=== PATIENT | female | born 1950 | race Caucasian/White ===

== ENCOUNTER → 2018-03-28 10:37 | Outpatient (CLI) | payer MEDICARE, SELFPAY ==
--- NOTE | 2018-03-28 | DI.MG.S_ITS ---
BILATERAL DIGITAL SCREENING MAMMOGRAM 3D/2D WITH CAD: 03/28/2018 CLINICAL: Routine screening. Comparison is made to exams dated: 01/17/2017 mammogram, 01/14/2016 mammogram, and 01/12/2015 mammogram - [facility]. There are scattered fibroglandular elements in both breasts. Current study was also evaluated with a Computer Aided Detection (CAD) system. No significant masses, calcifications, or other findings are seen in either breast. There has been no significant interval change. IMPRESSION: NEGATIVE There is no mammographic evidence of malignancy. A 1 year screening mammogram is recommended.(03/29/2019) NOTE: For mammograms, a report in lay terms will be sent to the patient. Approximately 15% of breast malignancies will not be visualized mammographically. In the management of a palpable breast mass, a negative mammogram must not discourage biopsy of a clinically suspicious lesion. Electronically Signed By: Danika rico/sam:03/28/2018 13:15:30 letter sent: Normal Exam ACR BI-RADS Category 1: Negative 3341F
== END ==
PROVIDERS: Family Provider Family Medicine; PCP Family Medicine; Visit Provider Family Medicine
DX: Z12.31 Encounter for screening mammogram for malignant neoplasm of breast (principal)
CPT/HCPCS: 77063; 77067

== ENCOUNTER → 2018-06-29 16:29 | Outpatient (CLI) | payer MEDICARE, SELFPAY ==
--- NOTE | 2018-06-29 16:32 | DI.RAD.S_ITS ---
PROCEDURE: XR WRIST LT MIN 3V INDICATIONS: LEFT WRIST PAIN TECHNIQUE: 4 views of the wrist were acquired. COMPARISON: None. FINDINGS: Bones: No fractures or dislocations. No suspicious bony lesions. Mild osteoarthritic changes along radial aspect of left wrist are seen. Scaphoid view: Scaphoid is grossly intact. Soft tissues: No suspicious soft tissue calcifications. 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 No fracture or dislocation. Dictated by: Basil Powell M.D. on 06/29/2018 at 16:56 Approved by: Basil Powell M.D. on 06/29/2018 at 16:57
== END ==
PROVIDERS: Family Provider Family Medicine; PCP Family Medicine; Visit Provider Family Medicine
DX: M25.532 Pain in left wrist (principal); M19.032 Primary osteoarthritis, left wrist
CPT/HCPCS: 73110

== ENCOUNTER 2018-09-10 10:35 | Emergency (ER) | payer MEDICARE, SELFPAY ==
[2018-09-10 11:00] VITALS: BP 157/77; PULSE 59; O2SAT 100
--- NOTE | 2018-09-10 11:13 | ED_ITS ---
HPI - Neuro Symptoms/Deficit General Chief Complaint: Neuro Symptoms/Deficit Stated Complaint: THINKS SHE HAD A TIA Time Seen by Provider: 09/10/18 10:41 Source: patient and family Mode of arrival: ambulatory Limitations: no limitations History of Present Illness HPI Narrative: 68-year-old female nonsmoker with history of hypertension hyperlipidemia presents at the request of her primary care provider for ev aluation of stroke-like symptoms. At the end of last week the patient had an episode of some vision trouble and when evaluated by her he found that her right eye was deviated inward. Despite that she denied any blurred or double vision. She had no trouble with speech, numbness, tingling or weakness. She attempted to see her eye doctor on Monday but waited over the weekend until today. She had no more ongoing symptoms. She was evaluated by Ophthalmology whom stated this was not an eye problem and therefore likely a brain problem and should be evaluated for stroke. She presented to the front office of her primary care provider but was appropriately routed to the nearest emergency department. Onset (ago): day(s) Timing confirmed by: spouse Location: other History of same: No Severity: mild Quality: other Relieving factors: none Exacerbating factors: none Context: other ( On no) On Anticoagulants: No Associated symptoms: denies other symptoms Treatments Prior to Arrival: Aspirin Related Data Home Medications Medication Instructions Recorded Confirmed benazepril 40 mg PO DAILY #0 11/23/16 09/10/18 aspirin 81 mg PO QDAY #0 07/05/17 atorvastatin 40 mg PO BEDTIME #0 07/05/17 09/10/18 citalopram 10 mg PO SEE INSTRUCTIONS #0 07/05/17 fenofibric acid (choline) 135 mg PO DAILY #0 07/05/17 09/10/18 metoprolol tartrate 50 mg PO BID #0 07/05/17 09/10/18 omega 1-mle-nrx-fish oil [Fish Oil] 1,000 mg PO #0 07/07/17 Previous Rx's Medication Instructions Recorded hydrocodone-acetaminophen [[place]] 1 tab PO Q4HP PRN #60 tab 07/10/17 hydroxyzine pamoate [Vistaril] 25 mg PO Q4HP PRN #60 cap 07/10/17 Allergies Allergy/AdvReac Type Severity Reaction Status Date / Time No Known Drug Allergies Allergy Verified 09/10/18 11:20 Review of Systems Constitutional Denies chills, Denies fever(s), Denies lethargy and Denies weakness Eyes Reports change in vision, Denies eye discharge, Denies irritation and Denies loss of vision ENT Ears, Nose, Mouth, and Throat: Denies change in voice, Denies neck pain and Denies sore throat Cardiovascular Denies chest pain, Denies irregular heart rhythm, Denies lightheadedness, Denies palpitations, Denies dyspnea, Denies dyspnea on exertion and Denies orthopnea Respiratory Denies cough, Denies dyspnea, Denies dyspnea on exertion and Denies wheezing Gastrointestinal Gastrointestinal: Denies abdominal pain, Denies change in bowel habits, Denies diarrhea, Denies nausea and Denies vomiting Genitourinary Denies hematuria, Denies flank pain, Denies urinary incontinence and Denies urinary urgency Musculoskeletal Denies neck pain Integumentary/Breasts Denies pruritus, Denies erythema, Denies rash and Denies wounds Neurologic Denies confusion, Denies loss of vision and Denies weakness Psychiatric Denies anxiety, Denies confusion, Denies depression, Denies homicidal ideation and Denies suicidal ideation Endocrine Denies palpitations Hematologic/Lymphatic Denies easy bruising Allergic/Immunologic Denies wheezing PFSH Social History Smoking Status: Never smoker Exam Narrative Exam Narrative: GENERAL: This is a well-nourished, well-developed patient, in mild distress. HEAD: Atraumatic. Normocephalic. No temporal or scalp tenderness. EYES: Pupils equal round and reactive. Extraocular motions intact. No scleral icterus. No injection or drainage. ENT: Nose without bleeding, purulent drainage or septal hematoma. Throat without erythema, tonsillar hypertrophy or exudate. Uvula midline. Airway patent. NECK: Trachea midline. No JVD or lymphadenopathy. Supple, nontender, no meningeal signs. CARDIOVASCULAR: Regular rate and rhythm without murmurs, gallops, or rubs. RESPIRATORY: Clear to auscultation. Breath sounds equal bilaterally. No wheezes, rales, or rhonchi. GASTROINTESTINAL: Abdomen soft, non-tender, nondistended. No hepato- splenomegaly, or palpable masses. No guarding. EXTREMITIES: No clubbing, cyanosis, or edema. No joint tenderness, effusion, or edema noted. BACK: Nontender without deformity or crepitance. No flank tenderness. NEURO: AOx3. SKIN: No rash or erythema. Initial Vital Signs Initial Vital Signs: Vital Signs Pulse Rate 59 L 09/10/18 11:00 Blood Pressure 157/77 H 09/10/18 11:00 Pulse Oximetry 100 09/10/18 11:00 Scores ABCD2 Age >= 60 years: yes Initial BP. Either SBP >= 140 or DBP >= 90.: yes Clinical features of the TIA: other symptoms Duration of symptoms: < 10 minutes History of diabetes: no ABCD2 Score: 2 NIH Stroke Scale Level of Conciousness: Alert, keenly responsive Ask month/age: Answers both questions correctly. Open/close eyes, close hand: Performs both tasks correctly Best gaze horizontal: Normal Visual dunn: No visual loss Facial palsy: Normal symetrical movement Left arm drift: No drift for full 10 sec Right arm drift: No drift for full 10 sec Left leg drift: No drift for full 10 sec Right leg drift: No drift for full 10 sec Limb ataxia: Absent Sensory on face/arms/legs: Normal, no sensory loss Best language: No aphasia, normal Dysarthria: Normal Extinction or inattention: No abnormality Total NIH Stroke scale score: 0 Course Orders Ordered: Discontinued Medications Sodium Chloride (Normal Saline 0.9%) 1,000 mls @ 150 mls/hr IV CONT MELODY Last Infusion: 09/10/18 16:29 Dose: 0 mls/hr Infusion: 09/10/18 13:30 Dose: 0 mls/hr Admin: 09/10/18 11:43 Dose: 150 mls/hr Consultations Consultation #1: discussed with her primary care provider, Dr. Munson, whom is happy to see the patient in the next day or 2 and will arrange for further evaluation as an outpatient, we did discuss outpatient MRI and echocardiogram as well as increasing the patient's aspirin from 81 to a full 325 Vital Signs - 8 hr 09/10/18 11:00 09/10/18 11:20 09/10/18 11:42 Temperature 98.5 F Pulse Rate 59 L 59 L 52 L Respiratory Rate 16 21 Blood Pressure 189/89 H Blood Pressure [Right Arm] 157/77 H 147/74 H Pulse Oximetry 100 100 100 09/10/18 12:22 09/10/18 13:07 Temperature Pulse Rate 53 L 61 Respiratory Rate 19 16 Blood Pressure Blood Pressure [Right Arm] 134/76 146/91 H Pulse Oximetry 98 98 MDM - Neuro Symptoms/Deficit Medical Records Attestation: I reviewed the patient's medical records. Lab Data Attestation: I reviewed the patient's lab results. Result diagrams: 09/10/18 11:16 09/10/18 11:16 Lab Results 09/10/18 09/10/18 09/10/18 Range/Units 11:16 11:16 11:16 WBC 8.4 (4.5-11.0) X10^3/uL RBC 4.60 (4.0-5.2) X10^6/uL Hgb 13.8 (12.0-16.0) g/dL Hct 42.2 (36-46) % MCV 91.8 (80-100) fL MCH 30.0 (26-34) PG MCHC 32.7 (30-36) % RDW 14.0 (11.6-14.8) % Plt Count 196 (150-400) X10^3/uL Neut % (Auto) 65.3 (50-75) % Lymph % (Auto) 23.8 L (25-40) % [place] % (Auto) 8.5 (3-14) % Eos % (Auto) 1.3 L (2-4) % Baso % (Auto) 1.1 (0-2) % Neut # (Auto) 5500 (9917-8818) /uL Lymph # (Auto) 2000 (4779-7603) /uL [place] # (Auto) 700 (0-900) /uL Eos # (Auto) 100 (0-450) /uL Baso # (Auto) 100 (0-100) /uL PT 9.9 L (10.1-12.7) SECONDS INR 0.9 (0.9-1.3) APTT 30 (26.4-36.2) SECONDS Sodium 140 (137-145) mmol/L Potassium 4.3 (3.4-5.1) mmol/L Chloride 106 (98-107) mmol/L Carbon Dioxide 27 (22-32) mmol/L BUN 17 (7-17) mg/dL Creatinine 0.80 (0.52-1.04) mg/dL Estimated GFR > 60.0 (>60) mL/min BUN/Creatinine Ratio 21.3 (6-22) Glucose 85 (80-110) mg/dL Calcium 9.0 (8.4-10.2) mg/dL Urine Opiates Screen (Negative) Ur Oxycodone Screen (Negative) Urine Methadone Screen (Negative) Ur Barbiturates Screen (Negative) U Tricyclic Antidepress (Negative) Ur Phencyclidine Scrn (Negative) Ur Amphetamines Screen (Negative) U Methamphetamines Scrn (Negative) Ur MDMA Scrn (Ecstasy) (Negative) U Benzodiazepines Scrn (Negative) Urine Cocaine Screen (Negative) U Marijuana (THC) Screen (Negative) 09/10/18 Range/Units 11:26 WBC (4.5-11.0) X10^3/uL RBC (4.0-5.2) X10^6/uL Hgb (12.0-16.0) g/dL Hct (36-46) % MCV (80-100) fL MCH (26-34) PG MCHC (30-36) % RDW (11.6-14.8) % Plt Count (150-400) X10^3/uL Neut % (Auto) (50-75) % Lymph % (Auto) (25-40) % [place] % (Auto) (3-14) % Eos % (Auto) (2-4) % Baso % (Auto) (0-2) % Neut # (Auto) (3141-4460) /uL Lymph # (Auto) (8923-6463) /uL [place] # (Auto) (0-900) /uL Eos # (Auto) (0-450) /uL Baso # (Auto) (0-100) /uL PT (10.1-12.7) SECONDS INR (0.9-1.3) APTT (26.4-36.2) SECONDS Sodium (137-145) mmol/L Potassium (3.4-5.1) mmol/L Chloride (98-107) mmol/L Carbon Dioxide (22-32) mmol/L BUN (7-17) mg/dL Creatinine (0.52-1.04) mg/dL Estimated GFR (>60) mL/min BUN/Creatinine Ratio (6-22) Glucose (80-110) mg/dL Calcium (8.4-10.2) mg/dL Urine Opiates Screen Negative (Negative) Ur Oxycodone Screen Negative (Negative) Urine Methadone Screen Negative (Negative) Ur Barbiturates Screen Negative (Negative) U Tricyclic Antidepress Negative (Negative) Ur Phencyclidine Scrn Negative (Negative) Ur Amphetamines Screen Negative (Negative) U Methamphetamines Scrn Negative (Negative) Ur MDMA Scrn (Ecstasy) Negative (Negative) U Benzodiazepines Scrn Negative (Negative) Urine Cocaine Screen Negative (Negative) U Marijuana (THC) Screen Positive H (Negative) Point of Care Testing Glucose POC 85 Urine Dip Bedside Urine Glucose Negative Bedside Urine Bilirubin - Negative Bedside Urine Ketone - Negative Urine Specific [place] 1.030 Bedside Urine Occult Blood - Negative Bedside Urine pH 5.5 Bedside Urine Protein - Negative Bedside Urine Urobilinogen - Negative Bedside Urine Nitrite - Negative Bedside Urine Leukocytes - Negative Esterase MDM Narrative Medical decision making narrative: patient had an episode of brief neurologic symptom many days ago. Her head CT today is unremarkable for stroke and NIH stroke scale is 0. furthermore, ABCD2 score is low at 2 suggesting outpatient evaluation is appropriate. Her primary care provider has been contacted and is happy to take over care and take her through the outpatient evaluation. Patient and have had questions answered to their apparent satisfaction. They understand today's course of treatment, findings and recommendations. We have discussed return precautions and they verbalized their understanding Discharge Plan Departure Patient Disposition: Home Clinical Impression: Transient cerebral ischemia Qualifiers: Transient cerebral ischemia type: unspecified Qualified Code(s): G45.9 - Transient cerebral ischemic attack, unspecified Discharge Date/Time: 09/10/18 14:20 Interventions: ED Discharge Assessment Last Done: 09/10/18 14:18 Instructions: DI for Stroke-Ischemic Activity Restrictions/Additional Instructions: *You have been diagnosed with [ acute TIA, resolved ] *What to do: *Continue to take medications as directed, increase Aspirin to 324mg daily *Follow up with your primary care provider this week call for an appointment. Let them know you were seen in the Emergency Department and that we ask that you be seen in follow up *Return to ER if you should have any new, worsening or concerning symptoms, such as [ any recurrence of neurologic symptoms such as numbness, tingling or weakness, vision or speech trouble, or other bothersome symptoms.] Prescriptions: No Action benazepril 40 MG tablet 40 mg PO DAILY Qty: 0 RF: 0 metoprolol tartrate 50 MG tablet 50 mg PO BID Qty: 0 RF: 0 fenofibric acid (choline) 135 MG capsule,delayed release(DR/EC) 135 mg PO DAILY Qty: 0 RF: 0 citalopram 10 MG tablet 10 mg PO SEE INSTRUCTIONS Qty: 0 RF: 0 atorvastatin 40 MG tablet 40 mg PO BEDTIME Qty: 0 RF: 0 aspirin 81 MG tablet,delayed release (DR/EC) 81 mg PO QDAY Qty: 0 RF: 0 omega 8-ubz-fus-fish oil [Fish Oil] 1,000 MG capsule 1,000 mg PO Qty: 0 RF: 0 hydrocodone-acetaminophen [[place]] 5 MG/325 MG tablet 1 tab PO Q4HP PRNQty: 60 RF: 0 hydroxyzine pamoate [Vistaril] 25 MG capsule 25 mg PO Q4HP PRNQty: 60 RF: 1 Referrals: Brayden Munson MD [Primary Care Provider] -
[2018-09-10 11:20] VITALS: BP 189/89; PULSE 59; RESP 16; TEMP 36.9; O2SAT 100; BMI 32.2
[2018-09-10 11:25] LABS: Add Manual Diff / Slide Review NO; Basophils Absolute Auto 100 /uL (0-100); Basophils Percent Auto 1.1 % (0-2); Eosinophils Absolute Auto 100 /uL (0-450); Eosinophils Percent Auto 1.3 % (2-4); Hematocrit 42.2 % (36-46); Hemoglobin 13.8 g/dL (12.0-16.0); Lymphocytes Absolute Auto 2000 /uL (1100-4500); Lymphocytes Percent Auto 23.8 % (25-40); Mean Corpuscular HGB Conc 32.7 % (30-36); Mean Corpuscular Volume 91.8 fL (80-100); Monocytes Absolute Auto 700 /uL (0-900); Monocytes Percent Auto 8.5 % (3-14); Neutrophils Absolute Auto 5500 /uL (1500-7000); Neutrophils Percent Auto 65.3 % (50-75); Platelet Count 196 X10^3/uL (150-400); White Blood Cell Count 8.4 X10^3/uL (4.5-11.0)
[2018-09-10 11:31] LABS: INR 0.9 (0.9-1.3); Prothrombin Time 9.9 SECONDS (10.1-12.7)
[2018-09-10 11:33] LABS: PTT Partial Thromboplastin Tim 30 SECONDS (26.4-36.2)
[2018-09-10 11:35] LABS: BUN Creatinine Ratio 21.3 (6-22); Blood Urea Nitrogen 17 mg/dL (7-17); Carbon Dioxide 27 mmol/L (22-32); Chloride 106 mmol/L (98-107); Estimated Glomerular Filt Rate > 60.0 mL/min (>60); Glucose 85 mg/dL (80-110); HEMOLYSIS 37 (0-50); Potassium 4.3 mmol/L (3.4-5.1); Sodium 140 mmol/L (137-145)
[2018-09-10 11:42] VITALS: BP 147/74; PULSE 52; RESP 21; O2SAT 100
[2018-09-10] MEDS: SODIUM CHLORIDE 0.9% 1,000 ML 150 ML IV (11:43)
[2018-09-10 11:46] LABS: Urine Amphetamines Negative (Negative); Urine Barbiturates Negative (Negative); Urine Benzodiazepines Negative (Negative); Urine Cocaine Negative (Negative); Urine MDMA Negative (Negative); Urine Methadone Negative (Negative); Urine Methamphetamines Negative (Negative); Urine Morphine/Opi cutoff 2000 Negative (Negative); Urine Oxycodone Negative (Negative); Urine Phencyclidine Negative (Negative); Urine Tetrahydrocannabinol Positive (Negative); Urine Tricyclic Antidepressant Negative (Negative)
--- NOTE | 2018-09-10 11:47 | DI.CT.S_ITS ---
PROCEDURE: CT HEAD/BRAIN WO CON INDICATIONS: stroke symptoms, sent by opho TECHNIQUE: Noncontrast 4.5 mm thick angled axial sections acquired from the foramen magnum to the vertex, with coronal and sagittal reformats. For radiation dose reduction, the following was used: automated exposure control, adjustment of mA and/or kV according to patient size. COMPARISON: [facility], CT, ORBITS WITHOUT CONTRAST, 08/27/2015, 10:01. FINDINGS: Image quality: Excellent. CSF spaces: Basal cisterns are patent. No extra-axial fluid collections. The ventricles are symmetric in size and shape. Brain: No intracranial bleeds or masses. There is mild cerebral volume loss for age, with resultant ventricular and sulcal prominence. There are moderate periventricular and deep white matter chronic small vessel ischemic changes. There is intracranial internal carotid artery atherosclerosis. Skull and face: Calvarium and visualized facial bones appear intact, without suspicious lesions. Sinuses: Visualized sinuses and mastoids are clear. IMPRESSION: 1. No acute intracranial abnormalities. 2. Mild cerebral volume loss and moderate chronic microvascular ischemic changes. If clinical symptoms persist or clinical suspicion for acute stroke is high, MRI is suggested for further evaluation. Dictated by: Paul Luna M.D. on 09/10/2018 at 11:45 Approved by: Paul Luna M.D. on 09/10/2018 at 11:47
--- NOTE | 2018-09-10 11:56 | PC.NURSE ---
Pt reports she was sitting at the computer and felt dizzy and a little off. noticed that her right eye had deviated to her nose, she was able to move her eyes to follow his finger. pt waited until she could get in to see her head of design. She got an appt today, was checked out and then sent to her Primary care provider, Dr. Munson and then he sent her to us. Pt denies complaints other than her right eye has pressure in it and when I assessed her sensation she felt less sensation on her left side than she did on her right side.
[2018-09-10 12:22] VITALS: BP 134/76; PULSE 53; RESP 19; O2SAT 98
[2018-09-10 13:07] VITALS: BP 146/91; PULSE 61; RESP 16; O2SAT 98
[2018-09-10 14:00] VITALS: BP 159/72; PULSE 59; RESP 15; O2SAT 99
== END 2018-09-10 14:20 | disposition home or self-care (01) ==
PROVIDERS: Emergency Provider Emergency Medicine; Family Provider Family Medicine; PCP Family Medicine
DX: G45.9 Transient cerebral ischemic attack, unspecified (principal)
CPT/HCPCS: 36591; 70450; 80048; 80305; 81003; 82962; 85025; 85610; 85730; 93005; 96360; 96361; 99284; 99285; 99291

== ENCOUNTER → 2018-09-27 08:54 | Outpatient (CLI) | payer MEDICARE, SELFPAY ==
--- NOTE | 2018-09-27 | DI.MRI.S_ITS ---
PROCEDURE: MR HEAD/BRAIN WO CON INDICATIONS: TIA TECHNIQUE: Non-contrast axial T1 spin echo, axial T2 fast spin echo, sagittal and axial FLAIR, coronal T2 fast spin echo, axial gradient echo, axial diffusion and ADC through the brain. COMPARISON: [facility], CT, CT HEAD/BRAIN WO CON, 09/10/2018, 11:30. FINDINGS: Image quality: Excellent. CSF spaces: Ventricles appear symmetric in size and shape. Basal cisterns are patent. No extra-axial fluid collections. Brain: No intracranial bleeds or mass effects. There is mild cerebral volume loss for age. There are mild to moderate periventricular and deep white matter chronic small vessel ischemic changes. Brainstem appears normal. Diffusion-weighted images show no acute ischemic insults. No chronic ischemic insults. Normal intravascular flow voids are present. Skull and face: Calvarial bone marrow is normal in signal. Orbits are normal. Patient is status post right scleral banding. Sinuses: Sinuses and mastoids are clear. IMPRESSION: 1. No acute intracranial disease process. 2. No areas of acute or chronic infarction. 3. Mild diffuse cerebral and mild 4. Mild to moderate periventricular and subcortical white matter chronic microvascular ischemic changes. Dictated by: Sonal Hernandez MD, PhD on 09/27/2018 at 10:03 Approved by: Sonal Hernandez MD, PhD on 09/27/2018 at 10:05
--- NOTE | 2018-09-27 | DI.US.S_ITS ---
PROCEDURE: US CAROTID DOPPLER BI INDICATIONS: TIA TECHNIQUE: Color and pulse Doppler interrogation was performed of both carotid systems, with image documentation and velocity measurements. COMPARISON: None. FINDINGS: Stenosis calculations are based on SRU (Society of Radiologists in Ultrasound) criteria. Right side: Brachial blood pressure: 143/83 mm Hg. Common carotid artery peak systolic velocity: 73 cm/sec. Internal carotid artery peak systolic velocity: 68 cm/sec. Internal carotid artery end diastolic velocity: 11 cm/sec. External carotid artery peak systolic velocity: 93 cm/sec. ICA/CCA peak systolic ratio: 0.93. Argueta scale imaging description: Normal Percent internal carotid artery stenosis: Fully patent. Vertebral artery: Flow direction is antegrade. Left side: Brachial blood pressure: 151/84 mm Hg. Common carotid artery peak systolic velocity: 66 cm/sec. Internal carotid artery peak systolic velocity: 76 cm/sec. Internal carotid artery end diastolic velocity: 29 cm/sec. External carotid artery peak systolic velocity: 58 cm/sec. ICA/CCA peak systolic ratio: 1.15. Argueta scale imaging description: Normal Percent internal carotid artery stenosis: Fully patent. Vertebral artery: Flow direction is antegrade. IMPRESSION: 1. Internal carotid arteries are fully patent bilaterally. 2. Hypertension at the time of image acquisition. Dictated by: Sonal Hernandez MD, PhD on 09/27/2018 at 13:22 Approved by: Sonal Hernandez MD, PhD on 09/27/2018 at 13:24
== END ==
PROVIDERS: Family Provider Family Medicine; PCP Family Medicine; Visit Provider Family Medicine
DX: G45.9 Transient cerebral ischemic attack, unspecified (principal)
CPT/HCPCS: 70551; 93880

== ENCOUNTER → 2019-03-29 11:18 | Outpatient (CLI) | payer MEDICARE, SELFPAY ==
--- NOTE | 2019-03-29 11:48 | DI.MG.S_ITS ---
Patient Name: KIMBERLY TEMPLE date: 1950 Sex: F Attending Physician: HESHAM Indications: Date: 03/29/2019 11:48 At the request of: ZIA DAHL Procedure: MM screening mammo BI BILATERAL DIGITAL SCREENING MAMMOGRAM 3D/2D WITH CAD: 03/29/2019 CLINICAL: Routine screening. Comparison is made to exams dated: 03/28/2018 mammogram, 01/17/2017 mammogram, and 01/14/2016 mammogram - [facility]. There are scattered fibroglandular elements in both breasts. Current study was also evaluated with a Computer Aided Detection (CAD) system. No significant masses, calcifications, or other findings are seen in either breast. There has been no significant interval change. IMPRESSION: NEGATIVE There is no mammographic evidence of malignancy. A 1 year screening mammogram is recommended. This exam was interpreted at Station ID: [id number]. NOTE: For mammograms, a report in lay terms will be sent to the patient. Approximately 15% of breast malignancies will not be visualized mammographically. In the management of a palpable breast mass, a negative mammogram must not discourage biopsy of a clinically suspicious lesion. Electronically Signed By: Vinnie berry/sam:04/03/2019 14:47:52 letter sent: Normal Exam ACR BI-RADS Category 1: Negative 3341F
== END ==
PROVIDERS: PCP Family Medicine; Visit Provider Family Medicine
DX: Z12.31 Encounter for screening mammogram for malignant neoplasm of breast (principal)
CPT/HCPCS: 77063; 77067

== ENCOUNTER → 2019-12-29 10:19 | Outpatient (CLI) | payer MEDICARE, SELFPAY ==
[2019-12-30 08:42] LABS: COVID19 Sendout Not Detected (Not Detect)
== END ==
PROVIDERS: PCP Family Medicine; Visit Provider Nurse Practitioner
DX: Z01.812 Encounter for preprocedural laboratory examination (principal)
CPT/HCPCS: 87635

== ENCOUNTER 2020-01-01 07:24 | Day surgery (SDC) | payer MEDICARE, SELFPAY ==
--- NOTE | 2020-01-01 07:23 | P.OP_ITS ---
Operative Date/Time/Diagnoses Date of procedure: 01/01/20 Time of procedure: 08:45 Procedure & Clinicians Procedure: Preoperative diagnoses: 1. Right significant nuclear sclerotic and cortical cataract. 2. Previous LASIK refractive surgery which increases surgical risk of on and planned refractive error. 3. Hypertension 4. Post retinal detachment repair with right scleral buckle. Postoperative diagnoses: 1. Cataract removed by phacoemulsification with placement of posterior chamber intraocular lens. Procedure: Phacoemulsification with posterior chamber intraocular lens implant Surgeon: Ingrid Burroughs MD Complications: None Specimen: None Implant: [id number]+20.5 Blood loss: None Anesthesia: Retrobulbar with monitored standby Description of procedure: Patient presents with a complaint of decreased vision due to cataract which is affecting activities of daily living of both distance and near vision. She has had previous refractive surgery and retinal detachment repair with scleral buckle causing unequal axial length. She desires a computer distance target. She understands that there is a greater chance calculation error because of her prior surgeries. The patient wants surgery to improve vision. The patient was taken to the operating room and given IV sedation. A retrobulbar block consisting of 6 cc of 2% xylocaine without epinephrine mixed half and half with 0.5% Marcaine with 1 cc of hyaluronidase added is placed between the medial and lateral 1/3 of the inferior orbital rim. The eye is manually massaged for 30 sec, prepped using Betadine solution, and draped in the usual sterile fashion. Temporal approach was made, a 1 mm side-port incision was made 90? from the proposed clear corneal incision position. Phenylephrine 1.5% mixed with 1% xylocaine 0.2 cc was placed into the anterior chamber. Viscoat followed by Darell campbell was then placed. A 2.6 mm clear incision with a 2.6 mm blade was placed. A 360 degree capsulorrhexis style capsulotomy was then performed with a cystitome needle on a [employer]. Hydrodelineation and hydrodissection were performed. The phacoemulsification unit is introduced, and sculpting notice used to groove the central lens. It is then removed in chopping mode. Epi nucleus is removed with epinuclear mode and irrigation aspiration was used to remove the peripheral cortex. The posterior capsule is polished. The intraocular lens is selected, inspected, power confirmed, and placed in the posterior chamber. The wound was stromally hydrated and tested for leaks, there was none and it was left sutureless. Vigamox 0.1 cc was placed into the anterior chamber. Kenalog 0.2 cc was placed in the superior subconjunctival space. A drop of antibiotic and was placed and the eye was patched and shielded. The patient was stable and returned to the recovery room in excellent condition. Dictated by: Ingrid Burroughs MD Copy to: [facility] Same procedure as scheduled: Yes
--- NOTE | 2020-01-01 07:23 | PM.PREOP ---
Pre-operative Note COVID-19 COVID-19 status: Negative Interval Note History & Physical reviewed/Exam performed by Physician: Yes Changes to H&P: No
[2020-01-01] MEDS: PROPARACAINE 0.5% OPHTH SOL 2 DROPS EYE-OP (07:56)
[2020-01-01] MEDS: CATARACT EYE COMPOUND (10 DROPS/SYRINGE) 3 DROPS EYE-OP (07:57)
[2020-01-01 08:00] VITALS: BP 147/83; PULSE 55; RESP 14; TEMP 36.3; O2SAT 99; BMI 30.2
[2020-01-01] MEDS: MOXIFLOXACIN INJ 5 MG/ML VIAL EYE-OP (09:09)
[2020-01-01] MEDS: CHONDROIDTIN/SOD HYALURONATE 1.05 ML SYRINGE INTRAOCULA (09:09)
[2020-01-01] MEDS: HYALURONATE SODIUM 10 MG/ML SYRINGE INJ (09:10)
[2020-01-01] MEDS: PHENYLEPHRINE/LIDOCAINE VIAL (OR) 0.2 ML EYE-OP (09:10)
[2020-01-01] MEDS: LIDOCAINE 2% 4 ML, BUPIVACAINE 0.5% (PF) 4 ML, HYALURONIDASE 150 UNIT INJ (09:11)
[2020-01-01] MEDS: TRIAMCINOLONE 50 MG/5 ML VIAL INJ (09:11)
[2020-01-01] MEDS: BALANCED SALT IRRIG SOLN NO.2 500 ML, EPINEPHrine 1 MG IRR (09:12)
[2020-01-01] MEDS: ERYTHROMYCIN OPHTH 1 GM OINT 1 APPLIC EYE-RIGHT (09:13)
[2020-01-01 09:52] VITALS: BP 129/71; PULSE 50; RESP 16; TEMP 35.8; O2SAT 98
== END 2020-01-01 09:55 | disposition home or self-care (01) ==
PROVIDERS: PCP Family Medicine; Referring Provider Ophthalmology; Visit Provider Ophthalmology
PROC: (CPT 66984; principal; 2020-01-01 08:45)
DX: H25.11 Age-related nuclear cataract, right eye (principal); H40.013 Open angle with borderline findings, low risk, bilateral; I10 Essential (primary) hypertension; E78.5 Hyperlipidemia, unspecified
CPT/HCPCS: 66984; J0171; J2250; J3010; J3301; J3470

== ENCOUNTER → 2020-02-02 11:16 | Outpatient (CLI) | payer MEDICARE, SELFPAY ==
[2020-02-03 22:00] LABS: COVID19 Sendout Not Detected (Not Detect)
== END ==
PROVIDERS: PCP Family Medicine; Visit Provider Physician Assistant
DX: Z11.59 Encounter for screening for other viral diseases (principal)
CPT/HCPCS: 87635

== ENCOUNTER 2020-02-05 12:26 | Day surgery (SDC) | payer MEDICARE, SELFPAY ==
--- NOTE | 2020-02-05 07:33 | P.OP_ITS ---
Operative Date/Time/Diagnoses Date of procedure: 02/05/20 Time of procedure: 13:15 Procedure & Clinicians Procedure: Preoperative diagnoses: 1. Left nuclear sclerotic and cortical cataract. 2. Status post LASIK 3. Status post right retinal Postoperative diagnoses: 1. Cataract removed by phacoemulsification with placement of posterior chamber intraocular lens. Procedure: Phacoemulsification with posterior chamber intraocular lens implant Surgeon: Ingrid Burroughs MD Complications: None Specimen: None Implant: ZCBOO+20.0, distance target Blood loss: None Anesthesia: Retrobulbar with monitored standby Description of procedure: Patient presents with a complaint of decreased vision due to cataract which is affecting activities of daily living. The patient wants surgery to improve vision. The patient was taken to the operating room and given IV sedation. A retrobulbar block consisting of 6 cc of 2% xylocaine without epinephrine mixed half and half with 0.5% Marcaine with 1 cc of hyaluronidase added is placed between the medial and lateral 1/3 of the inferior orbital rim. The eye is manually massaged for 30 sec, prepped using Betadine solution, and draped in the usual sterile fashion. Temporal approach was made, a 1 mm side-port incision was made 90? from the proposed clear corneal incision position. Phenylephrine 1.5% mixed with 1% xylocaine 0.2 cc was placed into the anterior chamber. Viscoat followed by Zhou was then placed. A 2.6 mm clear incision with a 2.6 mm blade was placed. A 360 degree capsulorrhexis style capsulotomy was then performed with a cystitome needle on a Healon. Hydrodelineation and hydrodissection were performed. The phacoemulsification unit is introduced, and sculpting notice used to groove the central lens. It is then removed in chopping mode. Epi nucleus is removed with epinuclear mode and irrigation aspiration was used to remove the peripheral cortex. The posterior capsule is polished. The intraocular lens is selected, inspected, power confirmed, and placed in the posterior chamber. The wound was stromally hydrated and tested for leaks, there was none and it was left sutureless. Vigamox 0.1 cc was placed into the anterior chamber. Kenalog 0.2 cc was placed in the superior subconjunctival space. A drop of antibiotic and was placed and the eye was patched and shielded. The patient was stable and returned to the recovery room in excellent condition. Dictated by: Ingrid Burroughs MD Copy to: [facility] Same procedure as scheduled: Yes
--- NOTE | 2020-02-05 07:33 | PM.PREOP ---
Pre-operative Note COVID-19 COVID-19 status: Negative Interval Note History & Physical reviewed/Exam performed by Physician: Yes Changes to H&P: No
[2020-02-05] MEDS: CATARACT EYE COMPOUND (10 DROPS/SYRINGE) 3 DROPS EYE-OP (12:43)
[2020-02-05] MEDS: PROPARACAINE 0.5% OPHTH SOL 2 DROPS EYE-OP (12:43)
[2020-02-05 12:45] VITALS: BP 133/76; PULSE 58; RESP 16; TEMP 36.9; O2SAT 100; BMI 30.2
[2020-02-05] MEDS: LIDOCAINE 2% 4 ML, BUPIVACAINE 0.5% (PF) 4 ML, HYALURONIDASE 150 UNIT INJ (13:19)
[2020-02-05] MEDS: CHONDROIDTIN/SOD HYALURONATE 1.05 ML SYRINGE INTRAOCULA (13:30)
[2020-02-05] MEDS: ERYTHROMYCIN OPHTH 1 GM OINT 1 APPLIC EYE-LEFT (13:31)
[2020-02-05] MEDS: HYALURONATE SODIUM 10 MG/ML SYRINGE INJ (13:31)
[2020-02-05] MEDS: MOXIFLOXACIN INJ 5 MG/ML VIAL EYE-OP (13:31)
[2020-02-05] MEDS: PHENYLEPHRINE/LIDOCAINE VIAL (OR) 0.2 ML EYE-OP (13:31)
[2020-02-05] MEDS: TRIAMCINOLONE 50 MG/5 ML VIAL INJ (13:32)
[2020-02-05] MEDS: BALANCED SALT IRRIG SOLN NO.2 500 ML, EPINEPHrine 1 MG IRR (13:33)
[2020-02-05 13:59] VITALS: BP 129/80; PULSE 54; RESP 17; TEMP 37.1; O2SAT 98
== END 2020-02-05 14:14 | disposition home or self-care (01) ==
LOC: OR 12:29
PROVIDERS: PCP Family Medicine; Referring Provider Family Medicine; Visit Provider Ophthalmology
PROC: (CPT 66984; principal; 2020-02-05 13:15)
DX: H25.812 Combined forms of age-related cataract, left eye (principal); I10 Essential (primary) hypertension; E78.5 Hyperlipidemia, unspecified; M35.00 Sjogren syndrome, unspecified
CPT/HCPCS: 66984; J0171; J2250; J3010; J3301; J3470

== ENCOUNTER → 2020-04-14 12:23 | Outpatient (CLI) | payer MEDICARE, SELFPAY ==
--- NOTE | 2020-04-14 | DI.MG.S_ITS ---
BILATERAL DIGITAL SCREENING MAMMOGRAM 3D/2D WITH CAD: 04/14/2020 CLINICAL: Routine screening. Comparison is made to exams dated: 03/29/2019 mammogram, 03/28/2018 mammogram, and 01/17/2017 mammogram - [facility]. There are scattered fibroglandular elements in both breasts. Current study was also evaluated with a Computer Aided Detection (CAD) system. No significant masses, calcifications, or other findings are seen in either breast. There has been no significant interval change. IMPRESSION: NEGATIVE There is no mammographic evidence of malignancy. A 1 year screening mammogram is recommended. This exam was interpreted at Station ID: [id number]. NOTE: For mammograms, a report in lay terms will be sent to the patient. Approximately 15% of breast malignancies will not be visualized mammographically. In the management of a palpable breast mass, a negative mammogram must not discourage biopsy of a clinically suspicious lesion. Electronically Signed By: Ezra recinos/sam:04/14/2020 17:10:56 letter sent: Normal Exam ACR BI-RADS Category 1: Negative 3341F
== END ==
PROVIDERS: PCP Family Medicine; Referring Provider Family Medicine; Visit Provider Family Medicine
DX: Z12.31 Encounter for screening mammogram for malignant neoplasm of breast (principal); M85.851 Other specified disorders of bone density and structure, right thigh; Z78.0 Asymptomatic menopausal state; M19.90 Unspecified osteoarthritis, unspecified site; Z82.62 Family history of osteoporosis
CPT/HCPCS: 77063; 77067; 77080

== ENCOUNTER → 2021-03-03 11:33 | Outpatient (CLI) | payer MEDICARE, SELFPAY ==
--- NOTE | 2021-03-03 | DI.CT.S_ITS ---
PROCEDURE: CT HEAD/BRAIN WO CON INDICATIONS: Fall on same level, unspecified, initial encounter TECHNIQUE: Noncontrast 4.5 mm thick angled axial sections acquired from the foramen magnum to the vertex, with coronal and sagittal reformats. For radiation dose reduction, the following was used: automated exposure control, adjustment of mA and/or kV according to patient size. COMPARISON: [facility], MR, MR HEAD/BRAIN WO CON, 09/27/2018, 9:02. [facility], CT, CT HEAD/BRAIN WO CON, 09/10/2018, 11:30. FINDINGS: Image quality: Excellent. CSF spaces: Basal cisterns are patent. No extra-axial fluid collections. The ventricles are symmetric in size and shape. Brain: No intracranial bleeds or masses. There is cerebral volume loss for age, with resultant ventricular and sulcal prominence. There are periventricular and deep white matter chronic small vessel ischemic changes. There is intracranial internal carotid artery atherosclerosis. Skull and face: Calvarium and visualized facial bones appear intact, without suspicious lesions. Sinuses: Visualized sinuses and mastoids are clear. IMPRESSION: No acute intracranial hemorrhage is seen. No acute intracranial process is seen. Dictated by: Jose Lacey M.D. on 03/03/2021 at 11:24 Approved by: Jose Lacey M.D. on 03/03/2021 at 11:26
== END ==
PROVIDERS: PCP Family Medicine; Referring Provider Family Medicine; Visit Provider Family Medicine
DX: S09.90XA Unspecified injury of head, initial encounter (principal); W18.30XA Fall on same level, unspecified, initial encounter
CPT/HCPCS: 70450

== ENCOUNTER → 2021-05-05 16:15 | Outpatient (CLI) | payer MEDICARE, SELFPAY ==
--- NOTE | 2021-05-05 | DI.MG.S_ITS ---
BILATERAL DIGITAL SCREENING MAMMOGRAM 3D/2D WITH CAD: 05/05/2021 CLINICAL: Routine screening. Comparison is made to exams dated: 04/14/2020 mammogram, 03/29/2019 mammogram, and 03/28/2018 mammogram - [facility]. There are scattered fibroglandular elements in both breasts. Current study was also evaluated with a Computer Aided Detection (CAD) system. There are benign calcifications in both breasts. No significant masses, calcifications, or other findings are seen in either breast. There has been no significant interval change. IMPRESSION: BENIGN There is no mammographic evidence of malignancy. A 1 year screening mammogram is recommended. This exam was interpreted at Station ID: [id number]. NOTE: For mammograms, a report in lay terms will be sent to the patient. Approximately 15% of breast malignancies will not be visualized mammographically. In the management of a palpable breast mass, a negative mammogram must not discourage biopsy of a clinically suspicious lesion. Electronically Signed By: Reg Higuera acr/xiomararad:05/05/2021 17:52:26 letter sent: Normal Exam ACR BI-RADS Category 2: Benign Finding(s) 3342F
== END ==
PROVIDERS: PCP Family Medicine; Referring Provider Family Medicine; Visit Provider Family Medicine
DX: Z12.31 Encounter for screening mammogram for malignant neoplasm of breast (principal)
CPT/HCPCS: 77063; 77067

== ENCOUNTER → 2022-08-02 09:23 | Outpatient (CLI) | payer MEDICARE, SELFPAY ==
--- NOTE | 2022-08-02 | DI.MG.S_ITS ---
BILATERAL DIGITAL SCREENING MAMMOGRAM 3D/2D WITH CAD: 08/02/2022 CLINICAL: Routine screening. Comparison is made to exams dated: 05/05/2021 mammogram, 04/14/2020 mammogram, 03/29/2019 mammogram, and 03/28/2018 mammogram - [facility]. There are scattered areas of fibroglandular density in both breasts (category b / 25%-50% glandular tissue). Current study was also evaluated with a Computer Aided Detection (CAD) system. There are benign calcifications in both breasts. No significant masses, calcifications, or other findings are seen in either breast. There has been no significant interval change. IMPRESSION: BENIGN There is no mammographic evidence of malignancy. A 1 year screening mammogram is recommended. Based on the Tyrer Cuzick model (a risk assessment model) the patient's lifetime risk is 5.4% and her 10 year risk is 3.4%. According to the ACR, ACS, and NCCN guidelines, an annual breast MRI exam along with mammogram is recommended if the patient's lifetime risk is 20% or greater. This exam was interpreted at Station ID: [id number]. NOTE: For mammograms, a report in lay terms will be sent to the patient. Approximately 15% of breast malignancies will not be visualized mammographically. In the management of a palpable breast mass, a negative mammogram must not discourage biopsy of a clinically suspicious lesion. Electronically Signed By: Neftali beach/sam:08/02/2022 15:58:13 letter sent: Normal Exam ACR BI-RADS Category 2: Benign Finding(s) 3342F
== END ==
PROVIDERS: PCP Family Medicine; Referring Provider Family Medicine; Visit Provider Family Medicine
DX: Z12.31 Encounter for screening mammogram for malignant neoplasm of breast (principal)
CPT/HCPCS: 77063; 77067

== ENCOUNTER → 2023-02-15 | Outpatient (CLI) | payer MEDICARE, SELFPAY ==
--- NOTE | 2023-02-15 | DI.RAD.S_ITS ---
Bone Density Report Name: KIMBERLY TEMPLE Age: 72 Sex: Female Ethnicity: White Date of : 1950 Indication: postmenopausal; screening for osteoporosis; Referring Provider: ZIA DAHL Study: Bone densitometry was performed. Exam Date: February 15, 2023 Accession number: [id number] Bone Density: Region BMD T-score Z-score Classification Femoral Neck (Left) 0.642 -1.9 0.0 Osteopenia Total Hip (Left) 0.935 -0.1 1.5 Normal Femoral Neck (Right) 0.651 -1.8 0.0 Osteopenia Total Hip (Right) 0.907 -0.3 1.3 Normal Total Hip Mean 0.921 -0.2 1.4 Normal Total Forearm (Left) 0.534 -0.8 1.2 Normal 1/3 Forearm (Left) 0.650 -0.7 1.4 Normal UD Forearm (Left) 0.412 -0.5 1.0 Normal World Health Organization criteria for BMD impression classify patients as: Normal (T-score at or above -1.0), Osteopenia (T-score between -1.0 and -2.5), or Osteoporosis (T-score at or below -2.5). 10-year Fracture Risk(1): Major Osteoporotic Fracture 11% Hip Fracture 1.9% Reported Risk Factors: [place] (), Neck BMD=0.642, BMI=31.2 (1) FRAX(R) Version 3.08. Fracture probability calculated for an untreated patient. Fracture probability may be lower if the patient has received treatment. Previous Exams: -- Region Exam Age BMD T-score BMD Change BMD Change Date g/cm2 vs Baseline vs Previous -- Total Hip(Left) 02/15/2023 72 0.935 -0.1 0.022 (2.4%)# 0.022 (2.4%)# 04/14/2020 69 0.914 -0.2 Total Hip(Right) 02/15/2023 72 0.907 -0.3 0.018 (2.1%)# 0.018 (2.1%)# 04/14/2020 69 0.889 -0.4 -- *Denotes significance at 95% confidence level, LSC for Total Hip = 0.027 g/cm2 # Denotes dissimilar scan types or analysis methods Impression: The patient has low bone mass, based on the Left Femoral Neck T-score. The patient has an estimated ten-year risk of hip fracture of 1.9% and an estimated ten-year risk of major fracture of 11%, based on the WHO FRAX algorithm. No significant bone loss was observed. Discussion: BONE DENSITY IS LOW AT ONE OR MORE SKELETAL SITES. This patient's lowest T-score is low at one or more skeletal sites. It meets the World Health Organization's (WHO) criteria for low bone mass (T-score between -1.0 and -2.5). The patient's 10-year risk of fracture as calculated by FRAX is less than the threshold where pharmacological therapy is recommended by the National Osteoporosis Foundation (NOF). However, all treatment decisions require clinical judgment and consideration of individual patient factors, including patient preferences, comorbidities, previous drug use, risk factors not captured in the FRAX model (e.g., frailty, falls, vitamin D deficiency, increased bone turnover, interval significant decline in bone density) and possible under or overestimation of fracture risk by FRAX. The patient should follow a healthful lifestyle (good nutrition with adequate calcium and vitamin D, and appropriate weight-bearing exercise). Follow-Up: Consider repeating this study in 2 to 3 years to reassess this patient's status, or sooner if there is some new clinical indication. Reported by: RAFFY ANTONIO MD on 02/15/2023 11:09:00 AM.
== END ==
LOC: RAD 10:43
PROVIDERS: PCP Family Medicine; Referring Provider Family Medicine; Visit Provider Family Medicine
DX: Z13.820 Encounter for screening for osteoporosis; Z78.0 Asymptomatic menopausal state; M85.852 Other specified disorders of bone density and structure, left thigh
CPT/HCPCS: 77080; 77081

== ENCOUNTER → 2023-12-13 07:51 | Outpatient (CLI) | payer MEDICARE, SELFPAY ==
[2023-12-13 08:57] LABS: Add Manual Diff / Slide Review NO; Basophils Absolute Auto 0 /uL (0-100); Basophils Percent Auto 0.5 % (0-2); Eosinophils Absolute Auto 200 /uL (0-450); Eosinophils Percent Auto 3.3 % (2-4); Hematocrit 40.9 % (36-46); Hemoglobin 13.6 g/dL (12.0-16.0); Lymphocytes Absolute Auto 1700 /uL (1100-4500); Lymphocytes Percent Auto 30.1 % (25-40); Mean Corpuscular HGB Conc 33.2 % (30-36); Mean Corpuscular Volume 93.5 fL (80-100); Monocytes Absolute Auto 500 /uL (0-900); Monocytes Percent Auto 8.2 % (3-14); Neutrophils Absolute Auto 3300 /uL (1500-7000); Neutrophils Percent Auto 57.9 % (50-75); Platelet Count 155 X10^3/uL (150-400); Red Blood Cell Count 4.37 X10^6/uL (4.0-5.2); Red Cell Distribution Width 13.6 % (11.6-14.8); White Blood Cell Count 5.7 X10^3/uL (4.5-11.0)
[2023-12-13 09:59] LABS: Alanine Aminotransferase 27 IU/L (<35); Albumin Globulin Ratio 1.6 (1.0-2.8); Alkaline Phosphatase 74 U/L (38-126); Aspartate Aminotransferase 25 IU/L (14-36); BUN Creatinine Ratio 20.9 (6-22); Bilirubin Total 0.6 mg/dL (0.2-1.3); Blood Urea Nitrogen 19 mg/dL (7-17); Calcium 8.8 mg/dL (8.4-10.2); Carbon Dioxide 28 mmol/L (22-32); Chloride 110 mmol/L (98-107); Cholesterol 152 mg/dL (140-199); Estimated Glomerular Filt Rate > 60 mL/min (>60); Globulin 2.5 g/dL (1.7-4.1); Glucose 104 mg/dL (80-110); HDL Cholesterol 60 mg/dL (40-60); HEMOLYSIS < 15 (0-50); LDL Cholesterol Calculated 48 mg/dL (<100); Potassium 4.3 mmol/L (3.4-5.1); Sodium 141 mmol/L (137-145); Total Protein 6.5 g/dL (6.3-8.2); Triglycerides 219 mg/dL (35-150)
[2023-12-13 10:28] LABS: TSH w/ Reflex to FT4 1.55 uIU/mL (0.47-4.68)
== END ==
PROVIDERS: PCP Student in an Organized Health Care Education/Training Program; Referring Provider Student in an Organized Health Care Education/Training Program; Visit Provider Student in an Organized Health Care Education/Training Program
DX: R53.83 Other fatigue (principal)
CPT/HCPCS: 36415; 80053; 80061; 84443; 85025

== ENCOUNTER 2024-02-09 10:42 | Emergency (ER) | payer MEDICARE, SELFPAY ==
[2024-02-09 10:46] VITALS: BP 184/85; PULSE 90; RESP 15; TEMP 36.6; O2SAT 94; BMI 33.2
--- NOTE | 2024-02-09 10:48 | DI.RAD.S_ITS ---
PROCEDURE: XR FOOT RT MIN 3V INDICATIONS: foot pain TECHNIQUE: 3 views of the foot were acquired. COMPARISON: None. FINDINGS: Bones: No fractures or dislocations. Postsurgical changes with screw in the 1st metatarsal, no evidence of hardware complication. No suspicious bony lesions. Plantar and posterior calcaneal enthesophytes. Soft tissues: No tibiotalar joint effusion. Achilles tendon appears normal. IMPRESSION: No acute osseous abnormality. If pain persists with conservative management, consider repeat x-ray in 10-14 days or cross-sectional imaging. First metatarsal hardware without evidence of complication. Dictated by: Puneet Armas M.D. on 02/09/2024 at 12:56 Approved by: Puneet Armas M.D. on 02/09/2024 at 12:57
--- NOTE | 2024-02-09 11:49 | ED_ITS ---
HPI - Extremity Problem General Chief complaint: Extremity Problem,Nontraumatic Stated complaint: Can't put Pressure on her right foot Time Seen by Provider: 02/09/24 11:19 Source: patient Mode of arrival: Wheelchair History of Present Illness HPI Narrative: Patient here with . is driving. Complains of right medial plantar foot pain. No known injury. Patient does have a high arch to her foot. She does admit she wears a lot of flat soled shoes. No surgeries to this foot before. No numbness or weakness. Denies any unusual event yesterday to slowly starting worse through the course of the day yesterday. No long hikes or walking. Patient has to stand and walk on the edge of her foot since yesterday. Need to toes exposed. There is tenderness to the medial arch of the foot. Pain with standing. No prior history of plantar fasciitis. Related Data Home Medications Medication Instructions Recorded Confirmed calcium carbonate (Calcium 600) 600 mg PO DAILY 12/07/23 02/01/24 multivit with minerals-iron 18 tab PO 12/07/23 02/01/24 mg-folic ac 400 mcg-vit K 25 mcg tablet (Adults Multivitamin) Previous Rx's Medication Instructions Recorded atorvastatin 40 mg tablet 40 mg PO BEDTIME #90 tabs 01/15/24 benazepril 40 mg tablet 40 mg PO DAILY #90 tabs 01/15/24 indomethacin 50 mg capsule 50 mg PO TID #20 caps 02/09/24 Allergies Allergy/AdvReac Type Severity Reaction Status Date / Time No Known Drug Allergies Allergy Verified 02/09/24 10:46 Review of Systems Review of Systems Narrative: GENERAL: negative chills, fatigue, malaise, fever, sweats. HEENT: negative sinus pain, ear pain, sore throat RESPIRATORY: negative dyspnea, cough CARDIOVASCULAR: negative chest pain, palpitations GASTROINTESTINAL: negative nausea, vomiting, abdominal pain : negative dysuria, frequency, hematuria MUSCULOSKELETAL: Positive muscle or bony pain SKIN: negative rash, skin lesions NEUROLOGIC: negative weakness, numbness Patient History Medical History Osteopenia Carpal tunnel syndrome Measles Hypertension Obesity (BMI 30.0-34.9) Spinal stenosis, lumbar Surgical History Anesthesia History of back surgery Family History Father History of heart disease Stroke Mother Hypertension Social History household members: spouse Smoking Status: Never smoker alcohol intake: current Smoking Status: Never smoker alcohol intake frequency: holidays/special occasions only Substance Use Type: does not use Exam Narrative Exam Narrative: GENERAL: in no distress, not toxic not dyspneic HEAD: Normocephalic. EYES: Pupils equal round EXTREMITIES: No gross deformities. Examination right foot. Need to toes exposed. Nontender ankle. Nontender knee. There is focal tenderness at the medial aspect of the arch of the medial foot. Heel is nontender. Toes are nontender. Foot is warm soft and pink with brisk cap refill sent strong pedal pulse. Wiggles toes. Light touch intact to foot and toes. Able to stand but has pain with bearing weight and has to shift to the lateral aspect of the right foot to bear weight. There is some pain with dorsi flexion of the foot, pain at the medial aspect of the foot. NEURO: AOx4. SKIN: Warm and dry PSYCH: Not anxious, is cooperative Initial Vital Signs Initial Vital Signs: Vital Signs Temperature 97.9 F 02/09/24 10:46 Pulse Rate 90 02/09/24 10:46 Respiratory Rate 15 02/09/24 10:46 Blood Pressure 184/85 H 02/09/24 10:46 Pulse Oximetry 94 02/09/24 10:46 Oxygen Delivery Method Room Air 02/09/24 10:46 Course Orders Ordered: ED Orders 02/09/24 10:48 XR foot RT min 3V Stat Discontinued Medications Hydrocodone Bitart/Acetaminophen (Hydrocodone/Acet 5/325 Tablet) 1 tab PO NOW ONE Stop: 02/09/24 11:49 Last Admin: 02/09/24 11:57 Dose: 1 tab Documented By: DIALLO Ketorolac Tromethamine (Ketorolac 30 Mg/Ml Vial) 30 mg IM NOW ONE Stop: 02/09/24 11:49 Last Admin: 02/09/24 11:57 Dose: 30 mg Documented By: DIALLO Ondansetron HCl (Ondansetron 4 Mg Odt) 4 mg SL NOW ONE Stop: 02/09/24 11:49 Last Admin: 02/09/24 11:57 Dose: 4 mg Documented By: DIALLO Vital Signs Vital signs: Vital Signs - 8 hr 02/09/24 10:46 02/09/24 13:04 Temperature 97.9 F 98.0 F Pulse Rate 90 73 Respiratory Rate 15 16 Blood Pressure 184/85 H 157/80 H Pulse Oximetry 94 97 Oxygen Delivery Method Room Air Room Air MDM - Extremity (Nontraumatic) Imaging Data Extremity x-ray #1: Radiologist's Impression: [address] [address] XRay Report Signed Patient: Elba Steven MR#: [id number] : 1950 Acct:[id number] Age/Sex: 73 / F Date of Service: 02/09/24 Loc: ED Accession Number: [id number] Procedure: XR foot RT min 3V Ordering Provider: Masoud Douglas MD PROCEDURE: XR FOOT RT MIN 3V INDICATIONS: foot pain TECHNIQUE: 3 views of the foot were acquired. COMPARISON: None. FINDINGS: Bones: No fractures or dislocations. Postsurgical changes with screw in the 1st metatarsal, no evidence of hardware complication. No suspicious bony lesions. Plantar and posterior calcaneal enthesophytes. Soft tissues: No tibiotalar joint effusion. Achilles tendon appears normal. IMPRESSION: No acute osseous abnormality. If pain persists with conservative management, consider repeat x-ray in 10-14 days or cross-sectional imaging. First metatarsal hardware without evidence of complication. Dictated by: Puneet Armas M.D. on 02/09/2024 at 12:56 Approved by: Puneet Armas M.D. on 02/09/2024 at 12:57 [facility] Narrative Medical decision making narrative: Patient here with . is driving. Complains of right medial plantar foot pain. No known injury. Patient does have a high arch to her foot. She does admit she wears a lot of flat soled shoes. No surgeries to this foot before. No numbness or weakness. Denies any unusual event yesterday to slowly starting worse through the course of the day yesterday. No long hikes or walking. Patient has to stand and walk on the edge of her foot since yesterday. Need to toes exposed. There is tenderness to the medial arch of the foot. Pain with standing. No prior history of plantar fasciitis. After history and exam Zuleika Barrera x-ray right foot, denies any history of heart attack strokes or diabetes or kidney injury MDM Medical records reviewed: No recent visit for this complaint Differential considered: Includes but not limited to plantar fasciitis stress fracture tendonitis Imaging studies independently reviewed: X-ray right foot no acute finding. Hardware intact Consultations: Podiatry referral provided Treatments: Zuleika Barrera Re-evaluations: 1:05 p.m.. Updated patient has been results. She does have good arch support shoes at home that she will wear. Podiatry referral provided. Return precautions reviewed. Nontoxic at discharge. is driving. Walker provided for ambulation. She does recall years years ago she had bunion surgery. Hardware noted and reviewed with her, she did not remember having hardware in her toe. However this is not where her pain is. Pain is posterior. Return precautions reviewed. Nontoxic at discharge. She desires discharge home. Blood pressure has improved, likely due to pain on arrival. Pain is much better now. Discussion: Appropriate for discharge home. No fever chills. Exam is reassuring. No crepitus or erythema around the hardware site. Nontender at the surgical site. is driving. Podiatry referral provided. She desires discharge home. Walker provided for her. Diagnosis: Plantar fasciitis Discharge Plan Departure Patient Disposition: Home Clinical Impression: Plantar fasciitis of right foot Instructions: DI for Plantar Fasciitis Activity Restrictions/Additional Instructions: Your exam and imaging studies are reassuring. Please use provided walker when ambulating. Please call provided podiatry office today for office appointment for re-evaluation within a week. Indomethacin prescription has been provided for you to help for pain. Please be sure to wear shoes with good arch support. Return if worse if any questions or concerns Prescriptions: New indomethacin 50 mg capsule 50 mg PO TID Qty: 20 0RF Rx Instructions: administer with food or milk No Action calcium carbonate [Calcium 600] 600 mg calcium (1,500 mg) tablet 600 mg PO DAILY Adults Multivitamin 18 mg iron-400 mcg-25 mcg tablet PO atorvastatin 40 mg tablet 40 mg PO BEDTIME Qty: 90 2RF benazepril 40 mg tablet 40 mg PO DAILY Qty: 90 2RF Referrals: Sari Underwood DPM [Physician] - Cara Spaulding MD [Primary Care Provider] - Stand Alone Forms: Patient Portal/API
[2024-02-09] MEDS: KETOROLAC 30 MG/ML VIAL IM (11:57)
[2024-02-09] MEDS: HYDROCODONE/ACET 5/325 TABLET 1 TAB PO (11:57)
[2024-02-09] MEDS: ONDANSETRON 4 MG ODT SL (11:57)
[2024-02-09 13:04] VITALS: BP 157/80; PULSE 73; RESP 16; TEMP 36.7; O2SAT 97
== END 2024-02-09 13:20 | disposition home or self-care (01) ==
PROVIDERS: Emergency Provider Emergency Medicine; PCP Student in an Organized Health Care Education/Training Program
DX: M72.2 Plantar fascial fibromatosis (principal)
CPT/HCPCS: 73630; 96372; 99283; J1885

== ENCOUNTER → 2024-11-28 16:00 | Outpatient (CLI) | payer MEDICARE, SELFPAY ==
--- NOTE | 2024-11-28 16:01 | DI.MG.S_ITS ---
MM screening mammo BI: 11/28/2024. BI-RADS: 1 CLINICAL: 74-year old female for bilateral screening mammogram. Tyrer-Cuzick lifetime risk of 2.8%. No personal or first-degree family history of breast cancer. PRIOR EXAMS 08/02/2022, 05/05/2021, 04/14/2020, 03/29/2019, 03/28/2018, 01/17/2017, 01/14/2016, 01/12/2015. MAMMOGRAPHY TECHNIQUE: 2D and 3D (tomosynthesis) digital mammographic views obtained, with additional images as needed for full coverage. Current study was also evaluated with a Computer Aided Detection (CAD) system. DENSITY B. There are scattered areas of fibroglandular density. MAMMOGRAPHY FINDINGS Bilateral: No suspicious mass, asymmetry, microcalcification, or other abnormality seen. IMPRESSION: * No evidence of malignancy. RECOMMENDATIONS Bilateral * Annual screening mammography. OVERALL ASSESSMENT CATEGORY BI-RADS-1: Negative. The [employer] recommends annual screening mammography beginning at age 40 for women with average risk of breast cancer. ELECTRONICALLY SIGNED: Hector Weeks M.D. on 11/29/2024 at 11:10:25 PM PT Interpreting Station ID: [id number]
== END ==
PROVIDERS: PCP Student in an Organized Health Care Education/Training Program; Referring Provider Student in an Organized Health Care Education/Training Program; Visit Provider Student in an Organized Health Care Education/Training Program
DX: Z12.31 Encounter for screening mammogram for malignant neoplasm of breast (principal)
CPT/HCPCS: 77063; 77067